=== PATIENT | female | born 1935 | race Caucasian/White ===

== ENCOUNTER 2021-10-15 08:18 | Day surgery (SDC) | payer OTHER, MEDICARE ==
[2021-10-10 10:45] VITALS: BMI 27.8
[2021-10-15 08:48] VITALS: TEMP 97.8
[2021-10-15] MEDS ORDERED: PROPOFOL 20 ML ONE ×4 (09:01)
[2021-10-15 10:37] VITALS: BP 124/68; PULSE 84
== END 2021-10-15 10:35 | disposition home or self-care (01) ==
LOC: FASU-ENDO 08:18
PROVIDERS: ATTEND Internal Medicine Gastroenterology
PROC: 0DBN8ZX Excision of Sigmoid Colon, Via Natural or Artificial Opening Endoscopic, Diagnostic (ICD-10-PCS; principal; 2021-10-15 09:24)
DX: K63.5 Polyp of colon (principal); K64.1 Second degree hemorrhoids; K64.8 Other hemorrhoids; K57.30 Diverticulosis of large intestine without perforation or abscess without bleeding; D64.9 Anemia, unspecified
CPT/HCPCS: 88305-TC